=== PATIENT | female | born 1985 ===

== ENCOUNTER 2017-07-21 13:29 | Emergency (ER) | payer OTHER ==
[2017-07-21 13:36] VITALS: TEMP 97.1; O2SAT 99
[2017-07-21] MEDS ORDERED: Lactated Ringer's 1,000 ML IV SCH (14:45)
--- NOTE | 2017-07-21 14:49 | ED PDOC ---
HPI: General Adult Time Seen by Provider: 07/21/17 13:41 Chief Complaint (Nursing): Dizziness/Lightheaded History Per: Patient Additional Complaint(s): Pt. states for the past week she's had pelvic pain associated with gradual onset , atraumatic holocephalic headache with dizziness. Reports the week prior she had vaginal spotting which resolved after 1 day and occurred only with wiping. LMP 06/10/2017. . Also reports feeling nauseous and has had vomiting. Denies head injury, fever, abdominal pain, diarrhea, weakness, hematemesis. Past Medical History Reviewed: Historical Data, Nursing Documentation, Vital Signs Vital Signs: Last Vital Signs Temp 97.1 F L 07/21/17 13:32 Pulse 79 07/21/17 13:32 Resp 16 07/21/17 13:32 BP 119/73 07/21/17 13:32 Pulse Ox 99 07/21/17 14:52 - Family History Family History: States: No Known Family Hx - Home Medications Home Medications: Ambulatory Orders Medication Instructions Recorded Doxylamine/Pyridoxine HCl (B6) 2 tab PO DAILY PRN #30 tablet. 07/21/17 [Derek Johnson 10-10 mg Tablet] Multivit/Folic Acid/I 1 tab PO DAILY #30 tab 07/21/17 [ Plus] - Allergies Allergies/Adverse Reactions: Allergies Allergy/AdvReac Type Severity Reaction Status Date / Time No Known Allergies Allergy Verified 07/21/17 13:35 Review of Systems ROS Statement: Except As Marked, All Systems Reviewed And Found Negative Genitourinary Female: Positive for: Vaginal Bleeding, Pelvic Pain Physical Exam - Physical Exam Appears: Positive for: Well, Non-toxic, No Acute Distress Head Exam: Positive for: ATRAUMATIC, NORMAL INSPECTION, NORMOCEPHALIC Skin: Positive for: Normal Color, Warm. Negative for: Rash Eye Exam: Positive for: Normal appearance, EOMI, PERRL. Negative for: Nystagmus ENT: Positive for: Normal ENT Inspection Neck: Positive for: Normal, Painless ROM Cardiovascular/Chest: Positive for: Regular Rate, Rhythm Respiratory: Positive for: CNT, Normal Breath Sounds Gastrointestinal/Abdominal: Positive for: Normal Exam, Soft. Negative for: Tenderness Back: Positive for: Normal Inspection. Negative for: L CVA Tenderness, R CVA Tenderness Extremity: Positive for: Normal ROM Neurologic/Psych: Positive for: Alert, Oriented. Negative for: Aphasia, Facial Droop - Laboratory Results Result Diagrams: 07/21/17 15:00 07/21/17 15:00 Urine POC: Positive - ECG O2 Sat by Pulse Oximetry: 99 - Progress ED Course And Treament: Labs ordered. Reglan 10mg IVPB, IV LR bolus ordered. TVUS: Intrauterine gestational sac without evidence of pole. Findings could represent missed , or early . Ectopic is not excluded. Recommend correlation with serial beta HCG levels and short-term interval followup. Pt. informed of results and instructed to return in 48 hours for repeat BHCG. Pt. states she is feeling much better. Disposition - Clinical Impression Clinical Impression: Threatened , Headache - Patient ED Disposition Is Patient to be Admitted: No - Disposition Referrals: [facility] [Outside] Disposition: Routine/Home Disposition Time: 17:25 Condition: IMPROVED Additional Instructions: Return to ED in 48 hours for repeat BHCG. Prescriptions: Doxylamine/Pyridoxine HCl (B6) [Derek Johnson 10-10 mg Tablet] 2 tab PO DAILY PRN #30 tablet. PRN Reason: nausea or vomiting Multivit/Folic Acid/I [ Plus] 1 tab PO DAILY #30 tab Instructions: Threatened Miscarriage (ED) Forms: [employer] (Iraqi)
[2017-07-21 15:07] LABS: BASO # 0.1 K/uL (0.0-0.2); BASO % 0.7 % (0.0-2.0); EOS # 0.6 K/uL (0.0-0.7); HEMATOCRIT 39.4 % (34.0-47.0); LYMPH # 1.9 K/uL (1.0-4.3); LYMPH % 16.9 % (20.0-40.0); MEAN CELL VOLUME 77.2 fl (81.0-99.0); MEAN CORPUSCULAR HEMOGLOBIN 25.9 pg (27.0-31.0); MEAN CORPUSCULAR HGB CONC 33.5 g/dL (33.0-37.0); MEAN PLATELET VOLUME 10.1 fl (7.2-11.7); MONO # 0.7 K/uL (0.0-0.8); MONO % 6.4 % (0.0-10.0); NEUT # 7.9 K/uL (1.8-7.0); RED CELL DISTRIBUTION WIDTH 13.8 % (11.5-14.5); WHITE BLOOD COUNT 11.1 K/uL (4.8-10.8)
[2017-07-21 15:18] LABS: ALB/GLOB RATIO 1.4 (1.0-2.1); ALKALINE PHOSPHATASE 62 U/L (38-126); ALT/SGPT 20 U/L (9-52); AST/SGOT 22 U/L (14-36); BILIRUBIN,TOTAL 0.4 mg/dl (0.2-1.3); BLOOD UREA NITROGEN 8 mg/dl (7-17); CALCIUM 9.8 mg/dL (8.4-10.2); CARBON DIOXIDE 23 mmol/L (22-30); CHLORIDE 105 mmol/L (98-107); GFR AFRICAN-AMERICAN > 60; GLUCOSE,RANDOM 94 mg/dL (65-105); POTASSIUM 3.9 MMOL/L (3.6-5.0); SODIUM 140 mmol/l (132-148); TOTAL PROTEIN 8.4 G/DL (6.3-8.2)
[2017-07-21 15:19] LABS: NRBC % 0.1 % (0.0-0.0)
--- NOTE | 2017-07-21 16:11 | US ---
PROCEDURE: HISTORY: pelvic pain, vaginal spotting COMPARISON: TECHNIQUE: FINDINGS: Ms. intrauterine with mean sac dimension of 2 centimeters correspond 6 weeks and 3 days. pole is not identified. With a yolk sac is observed. The ovaries have a normal sonographic appearance. There is a nabothian cyst measuring 1.5 centimeters. IMPRESSION: Intrauterine gestational sac without evidence of pole. Findings could represent missed , or early . Ectopic is not excluded. Recommend correlation with serial beta HCG levels and short-term interval followup.
[2017-07-21 16:18] LABS: RBC URINE 4 /hpf (0-3); URINE BACTERIA RARE (<OCC); URINE BILIRUBIN NEGATIVE (NEGATIVE); URINE BLOOD SMALL (NEGATIVE); URINE CALCIUM OXALATE CRYSTALS OCC /hpf (<OCC); URINE COLOR YELLOW (YELLOW); URINE GLUCOSE (UA) NEG (Normal); URINE KETONE NEGATIVE (NEGATIVE); URINE LEUKOCYTE ESTERASE NEG Leu/uL (Negative); URINE PROTEIN 30 mg/dL (NEGATIVE); URINE UROBILINOGEN 0.2-1.0 mg/dL (0.2-1.0); WBC URINE 2 /hpf (0-5)
[2017-07-21 18:05] VITALS: BP 110/75; PULSE 77; RESP 20
== END 2017-07-21 18:05 | disposition home or self-care (01) ==
LOC: EDBD → H.ER 13:29
DX: O20.0 Threatened abortion (principal); Z3A.00 Weeks of gestation of pregnancy not specified; O26.91 Pregnancy related conditions, unspecified, first trimester; R51 Headache
CPT/HCPCS: 76817; 80053; 81003; 81025; 84702; 85025; 96365; 99284; J2765; J7120

== ENCOUNTER 2017-07-23 12:20 | Emergency (ER) | payer SELFPAY ==
--- NOTE | 2017-07-23 13:16 | ED PDOC ---
HPI: General Adult Time Seen by Provider: 07/23/17 13:11 Chief Complaint (Nursing): Abnormal Labs Chief Complaint (Provider): follow up History Per: Patient Additional Complaint(s): Patient presents to emergency department for follow-up evaluation. Patient states she was seen in ED 2 days ago and was diagnosed with threatened . She was told to come back today for repeat labs and blood work. Patient has slight pelvic pain and vaginal spotting but states bleeding today is less than it was 2 days ago. Past Medical History Reviewed: Historical Data, Nursing Documentation, Vital Signs Vital Signs: Last Vital Signs Temp 98 F 07/23/17 12:38 Pulse 70 07/23/17 12:38 Resp 18 07/23/17 12:38 BP 113/62 07/23/17 12:38 Pulse Ox 99 07/23/17 14:05 - Medical History PMH: No Chronic Diseases - Family History Family History: States: No Known Family Hx - Living Arrangements Living Arrangements: With Family - Social History Current smoker - smoking cessation education provided: No Alcohol: None Drugs: Denies - Home Medications Home Medications: Ambulatory Orders Medication Instructions Recorded Doxylamine/Pyridoxine HCl (B6) 2 tab PO DAILY PRN #30 tablet. 07/21/17 [Derek Johnson 10-10 mg Tablet] Multivit/Folic Acid/I 1 tab PO DAILY #30 tab 07/21/17 [ Plus] - Allergies Allergies/Adverse Reactions: Allergies Allergy/AdvReac Type Severity Reaction Status Date / Time No Known Allergies Allergy Verified 07/21/17 13:35 Review of Systems ROS Statement: Except As Marked, All Systems Reviewed And Found Negative Genitourinary Female: Positive for: Vaginal Bleeding, Pelvic Pain Physical Exam - Reviewed Nursing Documentation Reviewed: Yes Vital Signs Reviewed: Yes - Physical Exam Appears: Positive for: Well, Non-toxic, No Acute Distress Skin: Negative for: Rash Eye Exam: Positive for: Normal appearance Cardiovascular/Chest: Positive for: Regular Rate, Rhythm Respiratory: Positive for: Normal Breath Sounds Gastrointestinal/Abdominal: Positive for: Soft. Negative for: Tenderness, Distended, Guarding Back: Negative for: L CVA Tenderness, R CVA Tenderness Extremity: Positive for: Normal ROM Neurologic/Psych: Positive for: Alert, Oriented - ECG O2 Sat by Pulse Oximetry: 99 Pulse Ox Interpretation: Normal Medical Decision Making Medical Decision Makin31 year old here for follow up from threatened Plan: Repeat Beta OB US Disposition - Clinical Impression Clinical Impression: Threatened - Patient ED Disposition Is Patient to be Admitted: Transfer of Care - Disposition Disposition: Transfer of Care Disposition Time: 14:06 Condition: STABLE Forms: [employer] (Namibian) Patient Signed Over To: Peng Dixon Handoff Comments: Signed out pending US and beta quant
[2017-07-23] MEDS ORDERED: Sodium Chloride 0.9% 1,000 ML IV STA (14:27)
[2017-07-23 15:03] LABS: BASO # 0.1 K/uL (0.0-0.2); BASO % 0.6 % (0.0-2.0); EOS % 0.2 % (0.0-4.0); HEMATOCRIT 38.1 % (34.0-47.0); LYMPH # 1.5 K/uL (1.0-4.3); LYMPH % 12.1 % (20.0-40.0); MEAN CORPUSCULAR HEMOGLOBIN 25.4 pg (27.0-31.0); MEAN CORPUSCULAR HGB CONC 32.6 g/dL (33.0-37.0); MEAN PLATELET VOLUME 10.3 fl (7.2-11.7); MONO # 0.4 K/uL (0.0-0.8); MONO % 2.9 % (0.0-10.0); NEUT # 10.4 K/uL (1.8-7.0); NEUT % 84.2 % (50.0-75.0); NRBC % 0.1 % (0.0-0.0); RED CELL DISTRIBUTION WIDTH 13.8 % (11.5-14.5); WHITE BLOOD COUNT 12.4 K/uL (4.8-10.8)
[2017-07-23 15:32] LABS: BLOOD UREA NITROGEN 12 mg/dl (7-17); CALCIUM 9.3 mg/dL (8.4-10.2); CARBON DIOXIDE 23 mmol/L (22-30); CHLORIDE 103 mmol/L (98-107); GFR AFRICAN-AMERICAN > 60; GLUCOSE,RANDOM 85 mg/dL (65-105); POTASSIUM 4.6 MMOL/L (3.6-5.0); SODIUM 138 mmol/l (132-148)
[2017-07-23 16:31] VITALS: BP 109/65; PULSE 72; RESP 16; TEMP 98.4; O2SAT 100
--- NOTE | 2017-07-23 16:35 | US ---
PROCEDURE: OB Pelvic Ultrasound HISTORY: with pain and spotting COMPARISON: None available. FINDINGS: UTERUS: Single Live intrauterine gestation. CRL equivalent to 5 weeks 5 days gestatioin Gestational sac diameter equivalent to 6 weeks 4 days gestation age (Ultrasound estimated): 6 weeks 1 day Date of delivery (Ultrasound estimated) : 03/17/2018 Heart rate: 131 bpm. Kathryn-gestational hemorrhage: None. Uterus measures 8.9 x 5.0 x 5.0 cm. No mass CERVIX: Nabothian cyst incidentally noted RIGHT OVARY: Measures 2.6 x 2.2 x 2.9 cm. No mass. Normal flow. LEFT OVARY: Measures 2.4 x 1.2 x 2.1 cm. No mass. Normal flow. FREE FLUID: None. OTHER FINDINGS: None. IMPRESSION: Single live intrauterine gestation of approximately 6 weeks 1 day gestational age. heart rate 131 beats per minute. No subchorionic hemorrhage. Otherwise unremarkable.
--- NOTE | 2017-07-23 16:53 | ED PDOC ---
- Laboratory Results Result Diagrams: 07/23/17 14:55 07/23/17 14:55 - ECG O2 Sat by Pulse Oximetry: 100 - Progress ED Course And Treament: IMPRESSION: Single live intrauterine gestation of approximately 6 weeks 1 day gestational age. heart rate 131 beats per minute. No subchorionic hemorrhage. Otherwise unremarkable. NS 1 liter wide open patient tolerating fluids in ED Disposition - Clinical Impression Clinical Impression: Threatened - POA Present On Arrival: None - Disposition Referrals: [facility] [Outside] Disposition: Routine/Home Disposition Time: 17:26 Condition: STABLE Instructions: Hyperemesis Gravidarum (ED), Threatened Miscarriage (ED) Forms: [employer] (Occitan), [facility] ED School/Work Excuse Print Language: NAMIBIAN
== END 2017-07-23 17:54 | disposition home or self-care (01) ==
LOC: EDBD 12:20 → H.ER 12:20
DX: O20.0 Threatened abortion (principal)
CPT/HCPCS: 76817; 80048; 81025; 84702; 85025; 99281; J7040

== ENCOUNTER 2018-03-13 21:12 | Inpatient (IN) | payer OTHER ==
[2018-03-13 23:57] LABS: BASO # 0.1 K/uL (0.0-0.2); BASO % 0.7 % (0.0-2.0); EOS # 0.2 K/uL (0.0-0.7); EOS % 1.2 % (0.0-4.0); HEMOGLOBIN 9.4 g/dL (12.0-16.0); LYMPH # 1.5 K/uL (1.0-4.3); LYMPH % 10.2 % (20.0-40.0); MEAN CELL VOLUME 73.9 fl (81.0-99.0); MEAN CORPUSCULAR HGB CONC 32.5 g/dL (33.0-37.0); MEAN PLATELET VOLUME 8.1 fl (7.2-11.7); MONO # 0.7 K/uL (0.0-0.8); MONO % 4.6 % (0.0-10.0); NEUT # 12.1 K/uL (1.8-7.0); NEUT % 83.3 % (50.0-75.0); NRBC % 0.1 % (0.0-0.0); RBC 3.93 Mil/uL (3.80-5.20); RED CELL DISTRIBUTION WIDTH 13.9 % (11.5-14.5); WHITE BLOOD COUNT 14.6 K/uL (4.8-10.8)
[2018-03-14 00:06] LABS: ALB/GLOB RATIO 0.9 (1.0-2.1); ALBUMIN 3.6 g/dL (3.5-5.0); ALT/SGPT 14 U/L (9-52); AST/SGOT 20 U/L (14-36); BLOOD UREA NITROGEN 11 mg/dl (7-17); CALCIUM 8.8 mg/dL (8.4-10.2); GFR AFRICAN-AMERICAN > 60; GFR NON-AFRICAN AMERICAN > 60
--- NOTE | 2018-03-14 00:07 | ED PDOC ---
HPI: Abdomen Time Seen by Provider: 03/13/18 21:15 Chief Complaint (Nursing): Abdominal Pain Chief Complaint (Provider): Abdominal Pain History Per: Patient History/Exam Limitations: no limitations Onset/Duration Of Symptoms: Days (x 8 days) Current Symptoms Are (Timing): Still Present Quality Of Discomfort: "Pain" Associated Symptoms: Nausea. denies: Fever, Vomiting, Diarrhea Additional Complaint(s): 32 year old female with a history of a section 8 days ago at [facility] presents to the ED complaining of abdominal pain. Patient reports nausea but denies fever, vomiting, diarrhea or any other medical complaints. PMD: none provided. Past Medical History Vital Signs: Last Vital Signs Temp 98 F 03/14/18 13:20 Pulse 70 03/14/18 13:20 Resp 18 03/14/18 13:20 BP 112/78 03/14/18 13:20 Pulse Ox 98 03/14/18 13:20 - Medical History PMH: No Chronic Diseases - Surgical History Surgical History: (x2) - Family History Family History: States: Unknown Family Hx - Social History Current smoker - smoking cessation education provided: No Ex-Smoker (has not smoked in the last 12 months): No Alcohol: None Drugs: Denies - Home Medications Home Medications: Ambulatory Orders Medication Instructions Recorded No Known Home Med 03/14/18 - Allergies Allergies/Adverse Reactions: Allergies Allergy/AdvReac Type Severity Reaction Status Date / Time No Known Allergies Allergy Verified 03/14/18 11:58 Review of Systems ROS Statement: Except As Marked, All Systems Reviewed And Found Negative Gastrointestinal: Positive for: Abdominal Pain Physical Exam - Reviewed Nursing Documentation Reviewed: Yes Vital Signs Reviewed: Yes - Physical Exam Appears: Positive for: Non-toxic, No Acute Distress Head Exam: Positive for: ATRAUMATIC, NORMAL INSPECTION, NORMOCEPHALIC Skin: Positive for: Normal Color, Warm, Dry Eye Exam: Positive for: EOMI, Normal appearance, PERRL Neck: Positive for: Normal, Painless ROM Cardiovascular/Chest: Positive for: Regular Rate, Rhythm. Negative for: Murmur Respiratory: Positive for: Normal Breath Sounds. Negative for: Respiratory Distress Gastrointestinal/Abdominal: Positive for: Soft, Other (steri strips on wounds, no active bleeding, dehiscence, clearn dry dressing). Negative for: Tenderness Extremity: Positive for: Normal ROM (upper and lower extremities) Neurologic/Psych: Positive for: Alert, Oriented (x3) - Laboratory Results Result Diagrams: 03/13/18 23:52 03/13/18 23:52 - ECG O2 Sat by Pulse Oximetry: 98 (RA) Pulse Ox Interpretation: Normal Medical Decision Making Medical Decision Making: Time: 23:39 Initial Impression: Abdominal Pain Initial Plan: --CT abd & pelvis IV contrast --CMP --CBC with differentials --Blood culture Time: 1:28 CT abd & pelvis IV contrast: FINDINGS: Lower thorax: No acute findings. ABDOMEN: Liver: Question of minimal right hepatic cyst measuring 5 mm. Gallbladder and bile ducts: The gallbladder is somewhat contracted with no stones. Pancreas: Normal. No ductal dilation. Spleen: Normal. No splenomegaly. Adrenals: Normal. No mass. Kidneys and ureters: Small nonobstructing bilateral renal calculi. Prominent right hydronephrosis and proximal hydroureter which extends to a large mid ureteral calculus at the L4 level which measures 9 x 7 x 6 mm. Stomach and bowel: Normal. No obstruction. No mucosal thickening. Appendix: A normal appendix is seen. PELVIS: Bladder: See Reproductive Finding. SABRINA HOLLOWAY | Preliminary Radiology Report ASSISTANT PLANT CONTROLLER (QA) DISCREPANCY? If there is a discrepancy between the preliminary and final interpretation, please notify [facility] via [email or web address]. If you do not have access to our QA portal, call our QA team at [phone] CONFIDENTIALITY STATEMENT This report is intended only for the use of the referring physician, and only in accordance with law, If you received this in error, call [phone] Page 2 of 2 Reproductive: Enlarged uterus consistent with state. Residual induration of a low transverse pelvic incision and duration across the dome of the urinary bladder consistent with recent . Slight relative prominence of the ovaries which is symmetric. ABDOMEN and PELVIS: Intraperitoneal space: Normal. No free air. No significant fluid collection. Bones/joints: No acute fracture. No dislocation. Soft tissues: Unremarkable. Vasculature: Normal. No abdominal aortic aneurysm. Lymph nodes: Normal. No enlarged lymph nodes. IMPRESSION: 1. Large mid right ureteral calculus at the L4 level measuring 6 x 7 x 9 mm with secondary obstructive uropathy of the right upper tract. 2. Small nonobstructing bilateral renal calculi. 3. Enlarged uterus consistent with state. Findings are consistent with recent . Although there is induration along the surgical site, no abnormal fluid collections are identified. Time: 5:26 --reviewed results iw patient at bedside. Case discussed wit Dr. Mireles. Patient will be admitted to the OR under dr delacruz, given antibiotics and receive a urethral stent for kidney stone. Scribe Attestation: Documented by Nicci Busby, acting as a scribe for Mindy Hayes MD Provider Scribe Attestation: All medical record entries made by the Scribe were at my direction and personally dictated by me. I have reviewed the chart and agree that the record accurately reflects my personal performance of the history, physical exam, medical decision making, and the department course for this patient. I have also personally directed, reviewed, and agree with the discharge instructions and disposition. Disposition - Clinical Impression Clinical Impression: Nephrolithiasis - Patient ED Disposition Is Patient to be Admitted: Yes Counseled Patient/Family Regarding: Studies Performed, Diagnosis - Disposition Disposition Time: 05:00 Condition: STABLE
[2018-03-14] MEDS ORDERED: Iohexol 300 100 ML IJ ONE (00:13)
[2018-03-14] MEDS ORDERED: Sodium Chloride 0.9% 50 ML IV ONE (00:13)
[2018-03-14] MEDS ORDERED: Sodium Chloride 0.9% 1,000 ML IV STA (02:28)
[2018-03-14 02:49] LABS: SQUAMOUS EPITHIAL 2 /hpf (0-5); URINE BACTERIA RARE (<OCC); URINE BILIRUBIN NEGATIVE (NEGATIVE); URINE BLOOD MODERATE (NEGATIVE); URINE CLARITY SLIGHTY-CLOUDY (Clear); URINE COLOR YELLOW (YELLOW); URINE GLUCOSE (UA) NEG (Normal); URINE LEUKOCYTE ESTERASE SMALL Leu/uL (Negative); URINE PROTEIN 30 mg/dL (NEGATIVE); URINE UROBILINOGEN 0.2-1.0 mg/dL (0.2-1.0)
[2018-03-14] MEDS ORDERED: cefTRIAXone (Rocephin) 1 gm Inj ONE (05:43)
[2018-03-14] MEDS ORDERED: Propofol 10 mg/ml Inj (20 ML) ONE (06:55)
[2018-03-14] MEDS ORDERED: Lidocaine 1% 5ml Abboject IV ONE (06:55)
[2018-03-14] MEDS ORDERED: Midazolam 2 MG/2 ML VIAL ONE (06:55)
[2018-03-14] MEDS ORDERED: Lidocaine 2% Jelly (5 ml) TOP ONE (06:56)
[2018-03-14] MEDS ORDERED: Lactated Ringer's 1,000 ML IV ONE (07:05)
[2018-03-14] MEDS ORDERED: Ciprofloxacin 400mg/200ml D5W IVPB ONE (07:13)
[2018-03-14] MEDS ORDERED: HYDROmorphone 0.5 mg/0.5 ml ISec IVP PRN (07:40)
[2018-03-14] MEDS ORDERED: Lactated Ringer's 1,000 ML IV SCH (07:45)
--- NOTE | 2018-03-14 10:20 | CT ---
PROCEDURE: CT Abdomen and Pelvis with contrast HISTORY: Abdominal pain. Relevant surgical history: Recent COMPARISON: None. TECHNIQUE: Contrast dose: 85 cc Omnipaque 300 Radiation dose: Total exam DLP = 257.90 mGy-cm. This CT exam was performed using one or more of the following dose reduction techniques: Automated exposure control, adjustment of the mA and/or kV according to patient size, and/or use of iterative reconstruction technique. FINDINGS: LOWER THORAX: Unremarkable. LIVER: Unremarkable. No gross lesion or ductal dilatation. GALLBLADDER AND BILE DUCTS: Unremarkable. PANCREAS: Unremarkable. No gross lesion or ductal dilatation. SPLEEN: Unremarkable. ADRENALS: Unremarkable. No mass. KIDNEYS AND URETERS: Right kidney in ureter: Dilated right collecting system and proximal right ureter. Point of obstruction is and 8.3 x 9.6 mm calculus. Anatomically this is at the level of the aortic bifurcation, L4 vertebral body. The right kidney is edematous. The Left kidney in ureter: Mild distention of the collecting systems may be related to the size of the uterus/ state. Punctate upper tract calculi are evident bilaterally. The Unremarkable. No hydronephrosis. No solid mass. VASCULATURE: Unremarkable. No aortic aneurysm. BOWEL: Unremarkable. No obstruction. No gross mural thickening. APPENDIX: Normal appendix. PERITONEUM: Unremarkable. No free fluid. No free air. LYMPH NODES: Unremarkable. No enlarged lymph nodes. BLADDER: Unremarkable. REPRODUCTIVE: Markedly enlarged uterus consistent with clinical history of immediate state/ . BONES: No acute fracture. OTHER FINDINGS: None. IMPRESSION: Obstructive uropathy related to mid ureteral calculus on the right. The proximal collecting system and ureter are dilated, the right kidney is edematous. Multiple punctate nonobstructing upper tract calculi. Additional benign and/or incidental findings described above. Concordant results (preliminary interpretation) provided by ki work. Procedure Completed: 00:31 Preliminary ([facility]) Report: Dictated and Authenticated: 01:28 Final Interpretation: 10:13
--- NOTE | 2018-03-14 11:41 | RAD ---
PROCEDURE: Intraoperative Fluoroscopy. HISTORY: CYSTO: RIGHT URETERAL STENT PLACEMENT FINDINGS: Fluoroscopic assistance was provided for right ureteral stent placement. Please refer to the operative report from FIDENCIO Velazquez. 1.6 minutes of fluoroscopy time was utilized.
[2018-03-14 12:28] VITALS: RESP 18; O2SAT 98
[2018-03-14 13:21] VITALS: BP 112/78; PULSE 70; TEMP 98
--- NOTE | 2018-03-17 09:09 | OP ---
PROCEDURE DATE: 03/14/18 SURGEON: Chase Her MD ANESTHESIOLOGIST: Jared Blas MD ANESTHESIA: General PREOP DIAGNOSIS: Mid Ureteral Calculus POSTOP DIAGNOSIS: same PROCEDURE: Cystoscopy INDICATION: The patient admitted with right flank pain. CAT scan revealed obstructing right mid ureteral calculus. DESCRIPTION OF PROCEDURE: The patient was brought to the OR, prepped and draped in the usual manner after general anesthesia given. A #21 cystourethroscope was inserted into the bladder, 3.5 wire was inserted into the right into the kidney. Double J stent was then placed over the wire and the wire removed. Stent was in good position. POSTOP CONDISTION: The patient tolerated the procedure well, left the OR in good condition. Chase Her MD
== END 2018-03-14 13:30 | disposition home or self-care (01) | DRG 305 ==
LOC: H.ER 21:12 → H.ERHOLD 03-14 05:31
PROVIDERS: ADMIT Urology; ATTEND Urology
PROC: 0T738DZ Dilation of Right Kidney Pelvis with Intraluminal Device, Via Natural or Artificial Opening Endoscopic (ICD-10-PCS; principal; 2018-03-14 06:30)
DX: N20.2 Calculus of kidney with calculus of ureter (principal); Z98.891 History of uterine scar from previous surgery